=== PATIENT | female | born 1985 | race Caucasian/White ===

== ENCOUNTER 2021-05-29 19:14 | Emergency (ER) | payer BC, SELFPAY ==
[~2021-05-29] VITALS: Ht 157.5 cm; Wt 61.2 kg
--- NOTE | 2021-05-29 19:24 | NUR ---
PT TO BED 1 FOR EVALUATION.
[2021-05-29 19:25] VITALS: BP_SYST 146
--- NOTE | 2021-05-29 19:35 | NUR ---
PT ARRIVED IN er FOR COMPLAINTS OF CHEST PAIN, H/A, AND NAUSEA FOR ABOUT 2 DAYS NOW. PT STATES ITS 03/25 PAIN AND IT COMES AND GOES. PT IS SYAING SHE HAD BEEN AWOKEN 2 DAYS AGO FROMTHE PAIN AND FEELS LIKE SHE NEEDS TOT BE CHCEKD OUT. PT IS A&OX4.
--- NOTE | 2021-05-29 19:38 | NUR ---
Placed in room 1. Placed on cardiac rehabilitation specialist, blood pressure machine and pulse oximeter. To gown for exam. Side rails up. Report given to SELF.
[2021-05-29 20:20] LABS: BASOPHILS % (AUTO) 0.9 % (0.0-2.0); EOSINOPHILS % (AUTO) 0.5 % (0.0-4.0); HEMATOCRIT 37.1 % (36-48); HEMOGLOBIN 12.8 g/dL (12.0-16.0); LYMPHOCYTES # (AUTO) 1.4 K/uL (1.0-5.5); LYMPHOCYTES % (AUTO) 28.4 % (20.5-51.5); MEAN CORPUSCULAR HEMOGLOBIN 33 pg (27-31); MEAN CORPUSCULAR HGB CONC 35 % (32-36); MEAN CORPUSCULAR VOLUME 96 fL (79.0-98.0); MONOCYTES # (AUTO) 0.2 K/uL (0.0-1.0); MONOCYTES % (AUTO) 4.2 % (1.7-9.3); NEUTROPHILS # (AUTO) 3.3 K/uL (1.8-7.7); PLATELET COUNT (AUTO) 248 K/uL (130-430); RED BLOOD CELL COUNT(AUTO) 3.87 MIL/uL (4.2-6.2); RED CELL DISTRIBUTION WIDTH 12.5 % (9.0-15.0); WHITE BLOOD COUNT (AUTO) 4.9 K/uL (4.8-10.8)
--- NOTE | 2021-05-29 20:30 | NUR ---
PT MOVED TO H1 DUE TO A MORE CRITICAL PT COMING IN
[2021-05-29 20:56] LABS: CALCIUM 8.9 mg/dL (8.4-11.0); CREATININE 0.65 mg/dL (0.55-1.30); POTASSIUM 3.7 mmol/L (3.5-5.1)
--- NOTE | 2021-05-29 21:45 | NUR ---
# 20 gauge angiocath placed to LAC. Use of asceptic technique. Opsite placed over site. Blood return noted. Blood for lab drawn from site. Flushed with 10 cc of normal saline. No evidence of infiltration noted. Patient tolerated well.
[2021-05-29] MEDS ORDERED: ONDANSETRON HCL 4 MG/2 ML VIAL IVP ONE (23:30)
[2021-05-29] MEDS ORDERED: NACL 0.9% 1,000 ML IV ONE (23:30)
--- NOTE | 2021-05-29 23:37 | NUR ---
PT REFUSED NS, CT, AND LAB WORK. PT WANTS TO LEAVE. AND DR ANDERSON IS AWARE
[2021-05-29 23:55] VITALS: BP_SYST 138
--- NOTE | 2021-05-29 23:56 | NUR ---
Patient given written and verbal discharge instructions and verbalizes understanding. ER MD discussed with patient the results and treatment provided. Patient in stable condition. ID arm band removed. IV catheter removed intact and dressing applied, no active bleeding. Patient educated on pain management and to follow up with PMD. Pain Scale 1/10. Opportunity for questions provided and answered. Medication side effect fact sheet provided.
== END 2021-05-29 23:56 | disposition home or self-care (01) ==
LOC: SED 19:14
DX: F41.9 Anxiety disorder, unspecified (principal); R00.2 Palpitations; Z88.0 Allergy status to penicillin; Z20.822 Contact with and (suspected) exposure to COVID-19
CPT/HCPCS: 36415; 80048; 85025; 87426; 93005; 96374; 99284; J2405